=== PATIENT | male | born 1980 | race Caucasian/White ===

== ENCOUNTER 2017-07-16 16:15 | Emergency (ER) | payer BC, OTHER ==
[2017-07-16 16:29] VITALS: BP 100/64
--- NOTE | 2017-07-16 17:03 | RAD ---
Indication: Right hand pain. 4 views of the right hand demonstrates no fracture. No other bone or joint abnormality is noted. IMPRESSION: No fracture of the right hand is noted.
--- NOTE | 2017-07-16 18:05 | UC ---
Douglas Lema Gabriel, scribed for Live Holly MD on 07/16/17 at 1746 . Hand/Wrist HPI - HPI Summary HPI Summary: This patient is a 36 year old M presenting [place] [facility] [place] a chief complaint of right hand pain s/p injury that occurred last night. Pts right hand was hit with a softball last night. The patient rates the pain 4/10 in severity. Symptoms aggravated by movement. Patient reports trouble using his right hand and swelling at second right metacarpal. - History Of Current Complaint Chief Complaint: UCUpperExtremity Stated Complaint: HAND INJURY Time Seen by Provider: 07/16/17 17:38 Hx Obtained From: Patient Onset/Duration: Lasting Days - 1, Still Present Severity Initially: Moderate Severity Currently: Moderate Pain Intensity: 4 Pain Scale Used: 0-10 Numeric Aggravating Factor(s): Movement Associated Signs And Symptoms: Positive: Other - trouble using his right hand, - Allergies/Home Medications Allergies/Adverse Reactions: Allergies Allergy/AdvReac Type Severity Reaction Status Date / Time No Known Allergies Allergy Verified 07/16/17 16:29 PMH/Surg Hx/FS Hx/Imm Hx Cardiovascular History: Other Other Cardiovascular History: SVT Other History Of: Negative For: Hepatitis C, Anticoagulant Therapy - Surgical History Surgical History: Yes Surgery Procedure, Year, and Place: CARDIAC ABLATION 1999 - Family History Known Family History: Positive: Cardiac Disease, Hypertension, Diabetes - Social History Occupation: Employed Full-time Lives: With Family Alcohol Use: Occasionally Substance Use Type: None Smoking Status (MU): Former Smoker Review of Systems Constitutional: Negative - fever, Other - trouble using his right hand, Skin: Other - swelling at right hand Musculoskeletal: Other: - right hand pain, trouble using his right hand, All Other Systems Reviewed And Are Negative: Yes Physical Exam - Summary Physical Exam Summary: General: well-appearing, no pain distress Skin: warm, color reflects adequate perfusion, dry Head: normal Eyes: EOMI, SETH ENT: normal Neck: supple, nontender Respiratory: CTA, breath sounds present Cardiovascular: RRR Abdomen: soft, nontender Bowel: present Musculoskeletal: swollen and TTP over the dorsum of the 2cnd metacarpal on the right hand. There is good strength, normal ROM, good sensation and capillary refill Neurological: normal, sensory/motor intact, A&O x3 Psychological: affect/mood appropriate Triage Information Reviewed: Yes Vital Signs: Initial Vital Signs Temp 98.6 F 07/16/17 16:25 Pulse 65 07/16/17 16:25 Resp 18 07/16/17 16:25 BP 100/64 07/16/17 16:25 Pulse Ox 98 07/16/17 16:25 Vital Signs Reviewed: Yes Diagnostics - Radiology hand xray Radiology Interpretation Completed By: Radiologist - No fracture of the right hand is noted. Dr. Holly has reviewed this report. Hand/Wrist Course/Dx - Course Course Of Treatment: DISCUSSED X-RAY RESULTS WITH THE PATIENT. - Differential Dx/Diagnosis Provider Diagnoses: RIGHT HAND CONTUSION Discharge - Sign-Out/Discharge Documenting (check all that apply): Discharge/Admit/Transfer - Discharge Plan Condition: Stable Disposition: HOME Patient Education Materials: Contusion in Adults (ED) Referrals: Jimbo Severino MD [Primary Care Provider] - Additional Instructions: FOLLOW UP WITH YOUR DOCTOR IF NOT COMPLETELY IMPROVED. GET RECHECKED FOR ANY WORSENING OF YOUR CONDITION OR QUESTIONS OR CONCERNS. - Billing Disposition and Condition Condition: STABLE Disposition: HOME The documentation as recorded by the Douglas elder Gabriel accurately reflects the service I personally performed and the decisions made by me, Live Holly MD.
== END 2017-07-16 18:10 | disposition home or self-care (01) ==
LOC: UCEAST 16:15
DX: S60.221A Contusion of right hand, initial encounter (principal); W21.07XA Struck by softball, initial encounter; Y93.64 Activity, baseball; Y92.9 Unspecified place or not applicable; Z87.891 Personal history of nicotine dependence
CPT/HCPCS: 99211; G0463

== ENCOUNTER 2017-10-22 08:19 | Emergency (ER) | payer BC ==
--- OUTSIDE RECORDS SUMMARY | 2017-10-22 08:43 | XMS REPORT ---
:1980 External Reference #:[id number] Author Organization [facility] Address [address] [place] [address] [place] [address] Phone [phone] Care Team Providers Name Role Phone Jimbo Severino MD Primary Care Physician Unavailable Payers Type Date Identification Numbers Payment Provider Subscriber Commercial Effective: Policy Number: [id number] [facility] Heidy Macias 2017 PayID: [id number] [address] [place] [address] Problems Date Description Provider Status Onset: 08/13/2017 Unsp fx second MC bone, right hand, subs German Tam MD Active for fx w routn heal Family History Date Family Member(s) Problem(s) Comments General Heart Disease Mother Cardiomyopathy ill in her 30's, age 40. no history of CAD. no other family history of cardiomyopathy. sister a and w. Social History Type Date Description Comments Lives With Spouse Living Situation Patient lives with female partner has a 4 yo daughter (2003). 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 Cigarette Use Current cigarette smoker, has smoked a 1/2 a pack a day for 6 years ETOH Use Drinks 6 Alcoholic Beverages Per Week Alcohol Currently consumes alcohol.Pt reports that he drinks a 12 pack a week. Smoking Patient has never smoked Daily Caffeine Drinks on average 1 cup of coffee a day Allergies, Adverse Reactions, Alerts Date Description Reaction Status Severity Comments 10/06/2003 NKDA active Medications Medication Date Status Form Strength Qnty SIG Indications Ordering Provider Albuterol 10/06/2003 Active Aerosol 90mcg/Dose prn Jan Claire M.D. med for acne 10/05/2003 Active pt unsure of Jan Claire M.D. Lunesta Active Unknown Vital Signs Date Vital Result Comment 09/24/2017 Height 73 inches 6'1" Weight 181.00 lb BP Systolic Sitting 100 mmHg BP Diastolic Sitting 70 mmHg Pain Level 0 BMI (Body Mass Index) 23.9 kg/m2 08/13/2017 Height 73 inches 6'1" Weight 181.00 lb Heart Rate 60 /min BP Systolic 109 mmHg BP Diastolic 68 mmHg Body Temperature 96.7 F Pain Level 0 BMI (Body Mass Index) 23.9 kg/m2 07/23/2017 Height 61 inches 5'1" Weight 183.00 lb Heart Rate 78 /min BP Systolic 102 mmHg BP Diastolic 60 mmHg Respiratory Rate 16 /min Body Temperature 97.9 F Pain Level 2 BMI (Body Mass Index) 34.6 kg/m2 10/06/2003 Height 72 inches 6'0" Weight 158.00 lb Heart Rate 73 /min BP Systolic Sitting 120 mmHg L 120/60 R BP Diastolic Sitting 58 mmHg L 120/60 R BP Systolic Standing 120 mmHg R BP Diastolic Standing 70 mmHg R BMI (Body Mass Index) 21.4 kg/m2 Results Description No Information Procedures Date CPT Code Description Status 07/23/2017 17848 Short Arm Cast Application Completed 11/02/2003 27152 Color Doppler Completed 11/02/2003 76250 Pulse Doppler & Continuous Wave Completed 11/02/2003 82437 Echocardiogram Completed 10/06/2003 68999 EKG Tracing & Interpretation Completed Encounters Type Date Location Provider CPT E/M Dx Office Visit 08/13/2017 [place] [address] S62.300D 3:00p [facility] Office Visit 07/23/2017 [place] [address] S62.300A 2:30p [facility] Office Visit 10/06/2003 [facility] Jan Claire, 10290 427.0 10:20a M.DFady 794.31 Plan of Care 09/24/2017 - JOYA Comer62.300D Unsp fx second MC bone, right hand, subs for fx w paz healNew Therapy:Physical TherapyFollow up:Follow up: As needed
[2017-10-22 08:54] LABS: Hematocrit 43 % (42-52); Hemoglobin 14.8 g/dl (14.0-18.0); Mean Corpuscular HGB Conc 34 g/dl (31-36); Mean Corpuscular Hemoglobin 31 pg (27-31); Mean Corpuscular Volume 90 fL (80-94); Mean Platelet Volume 7.6 um3 (7.4-10.4); Platelet Count 213 10^3/ul (150-450); Red Cell Distribution Width 13 % (10.5-15); White Blood Count 4.1 10^3/ul (3.5-10.8)
[2017-10-22 08:55] LABS: ABS Basophils 0 10^3/ul (0-0.2); ABS Eosinophils 0.3 10^3/ul (0-0.6); ABS Lymphocytes 1.7 10^3/ul (1.0-4.8); ABS Monocytes 0.5 10^3/ul (0-0.8); ABS Neutrophils 1.6 10^3/ul (1.5-7.7); ABS Nucleated RBC 0.01 10^3/ul; Eosinophil % 6.3 % (0-6); Lymphocyte % 41.8 % (25-47); Nucleated Red Blood Cells % 0.2
[2017-10-22 09:07] LABS: EGFR Non-African American 93.6 (>60)
--- NOTE | 2017-10-22 09:07 | RAD ---
HISTORY: palpitations COMPARISONS: September 06, 2008 VIEWS: 6: Frontal dual-energy and lateral views of the chest. FINDINGS: CARDIOMEDIASTINAL SILHOUETTE: The cardiomediastinal silhouette is normal. MJ: The mj are normal. PLEURA: The costophrenic angles are sharp. No pleural abnormalities are noted. LUNG PARENCHYMA: The lungs are clear. ABDOMEN: The upper abdomen is clear. There is no subphrenic gas. BONES AND SOFT TISSUES: No bone or soft tissue abnormalities are noted. OTHER: None. IMPRESSION: NO ACTIVE CARDIOPULMONARY DISEASE.
--- NOTE | 2017-10-22 09:16 | ED ---
Palpitations / Dysrhythmia - HPI Summary HPI Summary: Patient is a 36-year-old male with a history of SVT with ablation 15 years ago presenting to the ED with worsening feeling of palpitations and "skipped beats. " He has seen a contact person at [facility] and was to follow-up in 2 years ( which he is due at this time). Since the ablation he endorses intermittent feelings of dysrhythmia and palpitations however has not needed to return to the ED. Over the course of the past few weeks he endorses worsening symptoms associated with SOB. Denies any chest pain, numbness or tingling, headaches or visual changes. Symptoms are not aggravated or alleviated with rest or positioning. He takes Lunesta daily, but denies other medications. Denies smoking history, occasional EtOH use. Denies drug history. Denies any excess caffeine or energy drinks. He states he has been working out somewhat more frequently, but denies any symptoms when working out. Symptoms worse at rest and at night, better during daytime. While he had been experiencing symptoms over the past several weeks to months, the palpitations have been more frequent now. - History of Current Complaint Chief Complaint: EDDysrhythmPalp Time Seen by Provider: 10/22/17 08:28 Hx Obtained From: Patient Onset/Duration: Sudden Onset Timing: Constant Severity Initially: Moderate Severity Currently: Moderate Character: Irregular Aggravating: Nothing Alleviating: Nothing Associated Signs & Symptoms: Shortness of Breath - Risk Factors Cardiac: Negative Pulmonary Embolism: Negative Atrial Fibrillation: Negative - Allergy/Home Medications Allergies/Adverse Reactions: Allergies Allergy/AdvReac Type Severity Reaction Status Date / Time No Known Allergies Allergy Verified 10/22/17 09:42 PMH/Surg Hx/FS Hx/Imm Hx Previously Healthy: Yes Endocrine/Hematology History: Denies: Hx Anticoagulant Therapy - Surgical History Surgery Procedure, Year, and Place: CARDIAC ABLATION 1999 - Immunization History Hx Pertussis Vaccination: No Immunizations Up to Date: Unable to Obtain/Confirm Infectious Disease History: No Infectious Disease History: Reports: Hx Shingles Denies: Hx Clostridium Difficile, Hx Hepatitis, Hx Human Immunodeficiency Virus (HIV), Hx of Known/Suspected MRSA, Hx Tuberculosis, Traveled Outside the [place] in Last 30 Days - Family History Known Family History: Positive: Cardiac Disease, Hypertension, Diabetes - Social History Occupation: Employed Full-time Lives: With Family Alcohol Use: Occasionally Hx Substance Use: No Substance Use Type: Reports: None Hx Tobacco Use: Yes Smoking Status (MU): Former Smoker Review of Systems Constitutional: Negative Negative: Fever, Chills, Fatigue, Skin Diaphoresis Positive: Palpitations. Negative: Chest Pain Positive: Shortness Of Breath. Negative: Cough Genitourinary: Negative Positive: no symptoms reported, see HPI Negative: Arthralgia, Myalgia Skin: Negative Neurological: Negative All Other Systems Reviewed And Are Negative: Yes Physical Exam Triage Information Reviewed: Yes Vital Signs On Initial Exam: Initial Vitals Temp Pulse Resp BP Pulse Ox 97.1 F 66 18 124/74 100 10/22/17 08:22 10/22/17 08:22 10/22/17 08:22 10/22/17 08:22 10/22/17 08:22 Vital Signs Reviewed: Yes Appearance: Positive: Well-Appearing, Well-Nourished Skin: Positive: Warm, Skin Color Reflects Adequate Perfusion Head/Face: Positive: Normal Head/Face Inspection Eyes: Positive: EOMI, SETH, Conjunctiva Clear Neck: Positive: Supple, No Lymphadenopathy Respiratory/Lung Sounds: Positive: Clear to Auscultation, Breath Sounds Present Cardiovascular: Positive: RRR, Pulses are Symmetrical in both Upper and Lower Extremities. Negative: IRR, Tachycardia, Leg Edema Left, Leg Edema Right Musculoskeletal: Positive: Normal, Strength/ROM Intact Neurological: Positive: Alert, Oriented to Person Place, Time Psychiatric: Positive: Normal AVPU Assessment: Alert Diagnostics - Vital Signs Vital Signs Temp Pulse Resp BP Pulse Ox 10/22/17 08:22 97.1 F 66 18 124/74 100 - Laboratory Lab Results: Lab Results 10/22/17 Range/Units 08:39 WBC 4.1 (3.5-10.8) 10^3/ul RBC 4.80 (4.00-5.40) 10^6/ul Hgb 14.8 (14.0-18.0) g/dl Hct 43 (42-52) % MCV 90 (80-94) fL MCH 31 (27-31) pg MCHC 34 (31-36) g/dl RDW 13 (10.5-15) % Plt Count 213 (150-450) 10^3/ul MPV 7.6 (7.4-10.4) um3 Neut % (Auto) 39.6 (38-83) % Lymph % (Auto) 41.8 (25-47) % Foard % (Auto) 11.6 H (0-7) % Eos % (Auto) 6.3 H (0-6) % Baso % (Auto) 0.7 (0-2) % Absolute Neuts (auto) 1.6 (1.5-7.7) 10^3/ul Absolute Lymphs (auto) 1.7 (1.0-4.8) 10^3/ul Absolute Monos (auto) 0.5 (0-0.8) 10^3/ul Absolute Eos (auto) 0.3 (0-0.6) 10^3/ul Absolute Basos (auto) 0 (0-0.2) 10^3/ul Absolute Nucleated RBC 0.01 10^3/ul Nucleated RBC % 0.2 Result Diagrams: 10/22/17 08:39 10/22/17 08:39 Lab Statement: Any lab studies that have been ordered have been reviewed, and results considered in the medical decision making process. Course/Dx - Course Course Of Treatment: During the course of treatment, the patient is evaluated for feelings of palpitations and skipped beats with associated shortness of breath. 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 Currently seeing Dr. Haile at [facility]. Last visit 2 years ago with normal JASON and no evidence of hypertrophic cardiomyopathy. Mother suddenly from hypertrophic cardiomyopathy at the age of 46. Compared previous EKG to current EKG which continues to show first-degree AV node block with no evidence of any changes. He will be referred back to Dr. Haile. Discussed case with Dr. Negron at 11:25a who suggests a beta edward. Will start Lopressor 25mg BID and patient is given return precautions as well as possible side effects. He continue to be asymptomatic during his stay. If he develops any worsening or changing symptoms, he will return to the ED immediately. He will follow back up with Dr. Haile, however it was discussed if he is unable to get into see him within a month, he will follow up with Dr. Negron. D- Dimer negative. - Diagnoses Differential Diagnosis/HQI/PQRI: Positive: AV Block, Cardiomyopathy, Paroxymal SVT, V-Tach Provider Diagnoses: Dysrhythmia, cardiac, History of first degree AV block Discharge - Sign-Out/Discharge Documenting (check all that apply): Patient Departure - Discharge Plan Condition: Stable Disposition: HOME Prescriptions: Metoprolol Tartrate TAB* [Lopressor TAB*] 25 mg PO BID #60 tab Patient Education Materials: Metoprolol (By mouth) Referrals: Jimbo Severino MD [Primary Care Provider] - Zackary Negron MD [Medical Doctor] - Additional Instructions: Please follow up with Dr. Villegastic Call Dr. Gore office as well if you are unable to secure a sooner appt I have given you information regarding your new medications You may sustain some side effects of light headedness If side effects are too severe or you have syncopal episodes - please discontinue this medication and be re-seen - Billing Disposition and Condition Condition: STABLE Disposition: Home
[2017-10-22 12:40] VITALS: BP 120/69
== END 2017-10-22 12:39 | disposition home or self-care (01) ==
LOC: ED 08:19
DX: I49.9 Cardiac arrhythmia, unspecified (principal); I44.0 Atrioventricular block, first degree; Z79.899 Other long term (current) drug therapy; Z87.891 Personal history of nicotine dependence; Z82.49 Family history of ischemic heart disease and other diseases of the circulatory system
CPT/HCPCS: 36415; 71046; 80053; 82550; 83605; 83735; 84443; 84484; 85025; 85379; 93005; 99283